=== PATIENT | male | born 1960 | race Caucasian/White ===

== ENCOUNTER 2016-03-22 20:20 | Inpatient (IN) | payer MEDICARE ==
[~2016-03-22] VITALS: Ht 165.1 cm; Wt 77.2 kg
[2016-03-22] MEDS ORDERED: DUONEB INH ONE ×2 (21:20)
[2016-03-22] MEDS ORDERED: SODIUM CHLORIDE 0.9% 1,000 ML ONE (21:22)
[2016-03-22] MEDS ORDERED: Furosemide 40 MG/4 ML VIAL ONE (22:50)
[2016-03-22] MEDS ORDERED: ASPIRIN EC 325 MG TAB PO ONE (22:50)
[2016-03-22] MEDS ORDERED: SALINE FLUSH 10 ML FLUSH PRN (22:50)
[2016-03-22] MEDS ORDERED: NITROGLYCERIN 2% OINT 1 INCH PKT TOPICAL ONE (22:50)
[2016-03-22] MEDS: DUONEB INH SCH (23:00)
[2016-03-22] MEDS: Furosemide 20 MG/2 ML VIAL IV SCH (23:05)
[2016-03-23] VITALS (8 sets, daily range): BP systolic 98–133; RESP 18–24; TEMP 97.9–98.7; Ht 165.1 cm; Wt 77.2 kg
[2016-03-23] MEDS ORDERED: PHARMACY TO DOSE LEVAQUIN IV SCH (00:30)
[2016-03-23] MEDS ORDERED: NITROGLYCERIN SL 0.4 MG TAB SL PRN (00:45)
[2016-03-23] MEDS: DUONEB INH SCH ×6 (02:21→23:00)
[2016-03-23] MEDS: METHYLPRED SOD SUCC 125 MG/2 ML VIAL IV SCH ×4 (02:46→23:40)
[2016-03-23] MEDS: LEVOFLOXACIN 750 MG/150 ML 150 ML IV SCH ×2 (02:47→20:32)
[2016-03-23] MEDS: NICOTINE 21 MG/24 HR TRANSDERM SCH ×2 (02:48→08:43)
[2016-03-23] MEDS: SODIUM CHLORIDE 0.9% FLUSH BAG 500 ML IV SCH (02:53)
[2016-03-23] MEDS: Furosemide 20 MG/2 ML VIAL IV SCH ×2 (08:41→20:31)
[2016-03-23] MEDS: SALINE FLUSH 10 ML FLUSH SCH ×2 (08:41→20:32)
[2016-03-23] MEDS: ENOXAPARIN 40 MG/0.4 ML SYR SUBQ SCH (08:42)
[2016-03-23] MEDS: ASPIRIN 81 MG CHEW TAB PO SCH (18:00)
[2016-03-24] MEDS: DUONEB INH SCH ×6 (02:54→22:40)
[2016-03-24 03:20] VITALS: BP_SYST 96; RESP 20; TEMP 98.3
[2016-03-24] MEDS: SODIUM CHLORIDE 0.9% FLUSH BAG 500 ML IV SCH (05:40)
[2016-03-24 08:27] VITALS: BP_SYST 113; RESP 21; TEMP 96.5
[2016-03-24] MEDS: SALINE FLUSH 10 ML FLUSH SCH ×2 (08:41→20:44)
[2016-03-24] MEDS: METHYLPRED SOD SUCC 125 MG/2 ML VIAL IV SCH ×2 (08:41→16:31)
[2016-03-24] MEDS: ASPIRIN 81 MG CHEW TAB PO SCH (08:41)
[2016-03-24] MEDS: Furosemide 20 MG/2 ML VIAL IV SCH ×2 (08:41→20:44)
[2016-03-24] MEDS: ENOXAPARIN 40 MG/0.4 ML SYR SUBQ SCH (08:42)
[2016-03-24] MEDS: NICOTINE 21 MG/24 HR TRANSDERM SCH (08:43)
[2016-03-24 11:46] VITALS: BP_SYST 109; RESP 20; TEMP 98.4
[2016-03-24] MEDS ORDERED: AZITHROMYCIN 500 MG in SODIUM CHLORIDE 0.9% 250 ML IV ONE (14:10)
[2016-03-24] MEDS: CEFTRIAXONE 1 GM in SODIUM CHLORIDE 0.9% 50 ML IV SCH (15:09)
[2016-03-24 16:02] VITALS: BP_SYST 108; RESP 21; TEMP 98.5
[2016-03-24] MEDS ORDERED: MISSING DOSE XX ONE (16:30)
[2016-03-24 19:22] VITALS: BP_SYST 119; RESP 17; TEMP 98.5
[2016-03-24 23:23] VITALS: BP_SYST 100; RESP 18; TEMP 98.7
[2016-03-25] VITALS (8 sets, daily range): BP systolic 94–127; RESP 18–20; TEMP 98–99.2
[2016-03-25] MEDS: METHYLPRED SOD SUCC 125 MG/2 ML VIAL IV SCH ×2 (00:28→09:13)
[2016-03-25] MEDS: DUONEB INH SCH ×6 (03:00→22:40)
[2016-03-25] MEDS: SODIUM CHLORIDE 0.9% FLUSH BAG 500 ML IV SCH (06:03)
[2016-03-25] MEDS: ASPIRIN 81 MG CHEW TAB PO SCH (09:14)
[2016-03-25] MEDS: Furosemide 20 MG/2 ML VIAL IV SCH ×2 (09:14→21:09)
[2016-03-25] MEDS: NICOTINE 21 MG/24 HR TRANSDERM SCH (09:14)
[2016-03-25] MEDS: CEFTRIAXONE 1 GM in SODIUM CHLORIDE 0.9% 50 ML IV SCH (09:15)
[2016-03-25] MEDS: SALINE FLUSH 10 ML FLUSH SCH ×2 (09:15→21:09)
[2016-03-25] MEDS: ENOXAPARIN 40 MG/0.4 ML SYR SUBQ SCH (09:15)
[2016-03-25] MEDS: LISINOPRIL 5 MG TAB PO SCH (11:40)
[2016-03-25] MEDS: SPIRONOLACTONE 25 MG TAB PO SCH (11:40)
[2016-03-25] MEDS: Carvedilol 6.25 MG TAB PO SCH ×2 (11:40→21:08)
[2016-03-25] MEDS: DIGOXIN 0.5 MG/2 ML AMP IV SCH (11:40)
[2016-03-25] MEDS ORDERED: AZITHROMYCIN 250 MG in SODIUM CHLORIDE 0.9% 250 ML IV SCH (14:10)
[2016-03-26] MEDS: DUONEB INH SCH ×3 (02:22→11:00)
[2016-03-26 04:07] VITALS: BP_SYST 98; RESP 18; TEMP 98.8
[2016-03-26] MEDS: SODIUM CHLORIDE 0.9% FLUSH BAG 500 ML IV SCH (06:25)
[2016-03-26 07:35] VITALS: BP_SYST 106; TEMP 98.6
[2016-03-26 07:36] VITALS: RESP 20
[2016-03-26] MEDS: Furosemide 20 MG/2 ML VIAL IV SCH (08:47)
[2016-03-26] MEDS: SALINE FLUSH 10 ML FLUSH SCH (08:47)
[2016-03-26] MEDS: CEFTRIAXONE 1 GM in SODIUM CHLORIDE 0.9% 50 ML IV SCH (08:48)
[2016-03-26] MEDS: ASPIRIN 81 MG CHEW TAB PO SCH (08:49)
[2016-03-26] MEDS: NICOTINE 21 MG/24 HR TRANSDERM SCH (08:49)
[2016-03-26] MEDS: ENOXAPARIN 40 MG/0.4 ML SYR SUBQ SCH (08:49)
[2016-03-26] MEDS: Carvedilol 6.25 MG TAB PO SCH (08:50)
[2016-03-26] MEDS: LISINOPRIL 5 MG TAB PO SCH (08:50)
[2016-03-26] MEDS: SPIRONOLACTONE 25 MG TAB PO SCH (08:50)
[2016-03-26] MEDS ORDERED: PREDNISONE 20 MG TAB PO SCH (09:00)
[2016-03-26 11:14] VITALS: BP_SYST 109; TEMP 98.4
[2016-03-26 11:15] VITALS: RESP 20
[2016-03-26] MEDS: DIGOXIN 0.5 MG/2 ML AMP IV SCH (12:00)
[2016-03-26 12:01] VITALS: BP_SYST 109; RESP 20; TEMP 98.4
== END 2016-03-26 12:58 | disposition home or self-care (01) | DRG 291 ==
LOC: ENRESERVTM → ENRESERVDT → ER 20:20 → EMR 22:50 → ENPENDDIS 22:50 → PCU2 03-23 01:01
PROVIDERS: ADMIT Internal Medicine; ATTEND Internal Medicine
DX: I50.33 Acute on chronic diastolic (congestive) heart failure (principal); J96.02 Acute respiratory failure with hypercapnia; J18.9 Pneumonia, unspecified organism; J44.0 Chronic obstructive pulmonary disease with (acute) lower respiratory infection; I42.0 Dilated cardiomyopathy; J44.1 Chronic obstructive pulmonary disease with (acute) exacerbation; E66.3 Overweight; Z68.28 Body mass index [BMI] 28.0-28.9, adult; R00.0 Tachycardia, unspecified; F17.210 Nicotine dependence, cigarettes, uncomplicated
CPT/HCPCS: 36415; 36600; 71010; 71020; 80048; 80053; 82553; 82803; 83880; 84484; 85007; 85025; 85027; 87804; 93005; 93306; 94640; 94799; 96361; 99232; 99233; 99239